=== PATIENT | female | born 1985 | race Caucasian/White ===

== ENCOUNTER 2017-08-17 09:50 | Emergency (ER) | payer BC, OTHER ==
[2017-08-17] MEDS ORDERED: TETRACAINE HCL 0.5% 2ML OPTH ONE (13:01)
[2017-08-17] MEDS ORDERED: FLUORESCEIN SODIUM 0.6 MG/WRAP ONE (13:01)
[2017-08-17] MEDS ORDERED: TOBRAMYCIN 0.3% 5ML OPTH DROPS OPTH ONE (13:15)
--- NOTE | 2017-08-17 13:24 | EDPHYS ---
Physician Documentation [facility] Name: Suni Vargas Age: 31 yrs Sex: Female : 1985 Arrival Date: 08/17/2017 Time: 09:53 Bed 23 Private MD: John Paul Bermudez P ED Physician Mika Jones HPI: 08/17 14:00 This 31 yrs old Female presents to ER via Ambulatory with complaints of snw Foreign Body In Eye. 14:00 The patient is experiencing pain, redness, tearing, to the right eye. Onset: The snw symptoms/episode began/occurred suddenly, yesterday, and became worse and became persistent. Duration: the symptoms are continuous. Associated signs and symptoms: Pertinent positives: runny nose. Patient wears soft contacts, removed prior to arrival. Severity of symptoms: At their worst the symptoms were moderate severe in the emergency department the symptoms are unchanged. The patient has not experienced similar symptoms in the past. The patient has not recently seen a physician. 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 - Social history:: Smoking status: Patient/guardian denies using tobacco. - Ebola Screening: : No symptoms or risks identified at this time. ROS: 13:59 Constitutional: Negative for fever, chills, and weight loss, ENT: Negative for injury, snw pain, and discharge, Neck: Negative for injury, pain, and swelling, Cardiovascular: Negative for chest pain, palpitations, and edema, Respiratory: Negative for shortness of breath, cough, wheezing, and pleuritic chest pain, Abdomen/GI: Negative for abdominal pain, nausea, vomiting, diarrhea, and constipation, Back: Negative for injury and pain, : Negative for injury, bleeding, discharge, and swelling, MS/Extremity: Negative for injury and deformity, Skin: Negative for injury, rash, and discoloration, Neuro: Negative for headache, weakness, numbness, tingling, and seizure. 13:59 Eyes: Positive for foreign body sensation, injury or acute deformity, redness, tearing, of the iris of right eye. Exam: 13:55 Constitutional: This is a well developed, well nourished patient who is awake, alert, snw and in no acute distress. Head/Face: Normocephalic, atraumatic. ENT: Nares patent. No nasal discharge, no septal abnormalities noted. Tympanic membranes are normal and external auditory canals are clear. Oropharynx with no redness, swelling, or masses, exudates, or evidence of obstruction, uvula midline. Mucous membranes moist. Neck: Trachea midline, no thyromegaly or masses palpated, and no cervical lymphadenopathy. Supple, full range of motion without nuchal rigidity, or vertebral point tenderness. No Meningismus. Chest/axilla: Normal chest wall appearance and motion. Nontender with no deformity. No lesions are appreciated. Cardiovascular: Regular rate and rhythm with a normal S1 and S2. No gallops, murmurs, or rubs. Normal PMI, no JVD. No pulse deficits. Respiratory: Lungs have equal breath sounds bilaterally, clear to auscultation and percussion. No rales, rhonchi or wheezes noted. No increased work of breathing, no retractions or nasal flaring. Abdomen/GI: Soft, non-tender, with normal bowel sounds. No distension or tympany. No guarding or rebound. No evidence of tenderness throughout. Back: No spinal tenderness. No costovertebral tenderness. Full range of motion. Skin: Warm, dry with normal turgor. Normal color with no rashes, no lesions, and no evidence of cellulitis. MS/ Extremity: Pulses equal, no cyanosis. Neurovascular intact. Full, normal range of motion. Neuro: Awake and alert, GCS 15, oriented to person, place, time, and situation. Cranial nerves II-XII grossly intact. Motor strength 5/5 in all extremities. Sensory grossly intact. Cerebellar exam normal. Normal gait. Psych: Awake, alert, with orientation to person, place and time. Behavior, mood, and affect are within normal limits. 13:55 Eyes: Periorbital structures: appear normal, Pupils: no acute changes, Extraocular movements: no acute changes, Conjunctiva: injected, in the right eye, tearing noted, Corneas: abrasion, foreign body, at 6 o'clock. Vital Signs: 09:57 BP 132 / 90; Pulse 65; Resp 18; Temp 98.5(TE); Pulse Ox 98% on R/A; Weight 88.45 kg; sv Height 5 ft. 5 in. (165.10 cm); Pain 10/10; 12:44 BP 133 / 86; Pulse 68; Resp 18; Pulse Ox 100% ; Pain 10/10; tt1 09:57 Body Mass Index 32.45 (88.45 kg, 165.10 cm) sv Procedures: 13:56 Eye Exam: tetracaine placed, fluorescein uptake at 6 o'clock position, needle used to snw try to remove pinpoint fb. MDM: 12:51 Patient medically screened. snw 08/17 12:55 Order name: Eye Tray; Complete Time: 13:15 snw 08/17 12:55 Order name: Visual Acuity; Complete Time: 13:15 snw 08/17 12:55 Order name: Eye Tray; Complete Time: 13:15 snw 08/17 12:55 Order name: Fluoresene Opth strip; Complete Time: 13:15 snw Administered Medications: 13:05 Drug: Tetracaine Drops 0.5 % 1 drops {Note: administration by Judith Orlando NP.} ss Route: Ophthalmic; Site: right eye; 13:15 Drug: ToBREx Drops (0.3 %) 2 drops Route: Ophthalmic; Site: right eye; ss 13:32 Drug: fentaNYL (PF) 50 mcg Route: IM; Site: left deltoid; ss 13:40 Drug: Zofran 4 mg Route: PO; ss Disposition: 08/17/17 13:24 Discharged to Home. Impression: Corneal foreign body, Corneal abrasion. - Condition is Stable. - Discharge Instructions: Corneal Abrasion, Eye Foreign Body. - Prescriptions for Diclofenac Sodium 75 mg Oral Tablet Sustained Release - take 1 tablet by ORAL route 2 times per day; 30 tablet. - Medication Reconciliation Form, Thank You Letter, Antibiotic Education, Prescription Opioid Use form. - Follow up: Dee Wellington MD; When: 1 - 2 days; Reason: Recheck today's complaints, Continuance of care, Re-evaluation by your physician. Follow up: Dee Wellington MD; When: Tomorrow; Reason: Recheck today's complaints, Continuance of care. Addendum: 08/21/2017 07:31 Co-signature as Attending Physician, Mika Jones MD. g s Signatures: Lalita Figueroa, RN RN Judith Gonzalez, WARP PREPARER-C WARP PREPARER-Csnw Gaby Olivera RN RN Mika Galvez MD MD Corrections: (The following items were deleted from the chart) 08/17 13:58 13:24 08/17/2017 13:24 Discharged to Home. Impression: Corneal foreign body; Corneal ss abrasion. Condition is Stable. Forms are Medication Reconciliation Form, Thank You Letter, Antibiotic Education, Prescription Opioid Use. Follow up: Dee Wellington; When: Tomorrow; Reason: Recheck today's complaints, Continuance of care. snw
--- NOTE | 2017-08-17 13:24 | ER ---
Nurse's Notes [facility] Name: Suni Vargas Age: 31 yrs Sex: Female : 1985 Arrival Date: 08/17/2017 Time: 09:53 Bed 23 Private MD: John Paul Bermudez P Diagnosis: Corneal foreign body;Corneal abrasion Presentation: 08/17 09:55 Presenting complaint: Patient states: right eye unknown foreign body since yesterday. sv Redness noted to eyes. Pt has been flushing out her right eye since yesterday. Transition of care: patient was not received from another setting of care. Onset of symptoms was August 16, 2017. Risk Assessment: Do you want to hurt yourself or someone else? Patient reports no desire to harm self or others. Care prior to arrival: None. 09:55 Method Of Arrival: Ambulatory sv 09:55 Acuity: RAVIN 4 sv 11:15 Initial Sepsis Screen: Does the patient meet any 2 criteria? No. Patient's initial ss sepsis screen is negative. Does the patient have a suspected source of infection? No. Patient's initial sepsis screen is negative. 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 - Social history:: Smoking status: Patient/guardian denies using tobacco. - Ebola Screening: : No symptoms or risks identified at this time. Screenin:45 Abuse screen: Denies threats or abuse. Denies injuries from another. Nutritional ss screening: No deficits noted. Tuberculosis screening: Never had TB. Fall Risk None identified. Assessment: 12:45 General: Appears uncomfortable, Behavior is calm, cooperative. Pain: Complains of pain ss in iris of right eye Pain currently is 8 out of 10 on a pain scale. Pain began 1 day ago. Is continuous. Neuro: Level of Consciousness is awake, alert. Cardiovascular: Capillary refill < 3 seconds is brisk in bilateral fingers Patient's skin is warm and dry. Respiratory: Airway is patent Respiratory effort is even, unlabored. GI: Patient currently denies diarrhea, nausea, vomiting. EENT: Sclera/Cornea are reddened in outer aspect of conjuctiva of right eye and inner aspect of conjuctiva of right eye. Derm: Skin is intact, is healthy with good turgor, Skin is pink, warm \T\ dry. normal. Musculoskeletal: Circulation, motion, and sensation intact. Range of motion: intact in all extremities. Vital Signs: 09:57 BP 132 / 90; Pulse 65; Resp 18; Temp 98.5(TE); Pulse Ox 98% on R/A; Weight 88.45 kg; sv Height 5 ft. 5 in. (165.10 cm); Pain 10/10; 12:44 BP 133 / 86; Pulse 68; Resp 18; Pulse Ox 100% ; Pain 10/10; tt1 09:57 Body Mass Index 32.45 (88.45 kg, 165.10 cm) sv ED Course: 09:53 Patient arrived in ED. sb2 09:54 John Paul Bermudez MD is Private Physician. sb2 09:56 Triage completed. sv 09:57 Arm band placed on left wrist. sv 09:59 Patient placed in waiting room, Patient notified of wait time. sv 10:53 Judith Orlando FNP-C is [facility]. snw 10:53 Mika Jones MD is Attending Physician. snw 12:45 Patient has correct armband on for positive identification. Bed in low position. Call ss light in reach. 12:55 Gaby Olivera, ALEX is Primary Nurse. ss 13:19 Dee Wellington MD is Referral Physician. snw 13:19 Referral Physician role handed off by Dee Wellington MD snw 13:19 Dee Wellington MD is Referral Physician. snw 13:56 No provider procedures requiring assistance completed. Patient did not have IV access ss during this emergency room visit. Administered Medications: 13:05 Drug: Tetracaine Drops 0.5 % 1 drops {Note: administration by Judith Orlando NP.} ss Route: Ophthalmic; Site: right eye; 13:15 Drug: ToBREx Drops (0.3 %) 2 drops Route: Ophthalmic; Site: right eye; ss 13:32 Drug: fentaNYL (PF) 50 mcg Route: IM; Site: left deltoid; ss 13:40 Drug: Zofran 4 mg Route: PO; Outcome: 13:24 Discharge ordered by MD. schreiber 13:56 Discharged to home ambulatory, with significant other. 13:56 Condition: good 13:56 Discharge instructions given to patient, significant other, Instructed on discharge instructions, follow up and referral plans. medication usage, Demonstrated understanding of instructions, follow-up care, medications, Prescriptions given X 2. 13:58 Patient left the ED. Signatures: Lalita Figueroa RN RN Judith Orlando, GREEN MEAT PACKER-C GREEN MEAT PACKER-Gaby Mike RN RN Norma Reyna tt1 Chelsea Snell sb2 Corrections: (The following items were deleted from the chart) 09:59 09:55 Presenting complaint: Patient states: right eye unknown foreign body since yesterday. Redness noted to eyes. sv 10:00 09:57 Pulse 65bpm; Resp 18bpm; Pulse Ox 98% RA; Temp 98.5F Temporal; 88.45 kg; Height 5 sv ft. 5 in.; BMI: 32.4; Pain 10/10; sv 19:14 19:14 General: Appears [facility]
[2017-08-17] MEDS ORDERED: FENTANYL CITR 100 MCG/2 ML ONE (13:35)
[2017-08-17] MEDS ORDERED: ONDANSETRON 4 MG (ODT) TAB ONE (13:36)
[2017-08-17 14:02] VITALS: TEMP 98.5
[2017-08-17 14:03] VITALS: BP 133/86; O2SAT 100
== END 2017-08-17 13:58 | disposition home or self-care (01) ==
LOC: ER 09:50
DX: T15.01XA Foreign body in cornea, right eye, initial encounter (principal); Z88.5 Allergy status to narcotic agent
CPT/HCPCS: 96372; 99283; J3010

== ENCOUNTER 2019-03-22 06:30 | Inpatient (IN) | payer OTHER ==
[~2019-03-22 06:30] MED LIST: BUTORPHANOL 1 MG/ML INJ IV PRN; CARBOPROST TROME 250 MCG/ML IM PRN; METHYLERGONOVINE 0.2MG/ML AMP IM PRN; PROMETHAZINE INJ 25 MG/ML AMP IV PRN; Ringers Lactate 1,000 ML IV PRN
[2019-03-22] MEDS ORDERED: Ringers Lactate 1,000 ML IV SCH (07:00)
[2019-03-22] MEDS ORDERED: OXYTOCIN/LR 20 UNIT/1,000 ML BAG IV SCH ×2 (07:00→16:00)
[2019-03-22 07:24] LABS: Urine Appearance CLEAR; Urine Bilirubin NEGATIVE (NEG); Urine Blood NEGATIVE (NEG); Urine Color YELLOW; Urine Glucose NEGATIVE (NEG); Urine Protein NEGATIVE (NEG)
[2019-03-22 07:28] LABS: Absolute Lymphocytes (CBC) 1.7 K/uL (0.7-4.9); Basophils % 0.2 % (0-1.3); Hematocrit 33.2 % (36.0-45.0); Lymphocytes % 19.8 % (15.3-44.8); MPV 9.5 fL (7.6-11.3); RBC Red Blood Cell Count 3.86 M/uL (3.86-4.86)
[2019-03-22 07:33] LABS: Urine Microscopic Reflex NO UMIC
[2019-03-22 08:19] VITALS: BMI 36.6
[2019-03-22] MEDS ORDERED: FENTANYL/BUPIVACAINE/NS/PF 200 MCG/100 ML BAG EP PRN (08:59)
[2019-03-22] MEDS ORDERED: BUPIVACAINE 0.25% PF 30 ML VIAL IV ONE (09:00)
[2019-03-22] MEDS ORDERED: FENTANYL CITR 100 MCG/2 ML IV ONE (09:01)
[2019-03-22] MEDS ORDERED: LIDOCAINE 1% 20 ML MDV ONE (12:57)
[2019-03-22] MEDS ORDERED: METHYLERGONOVINE 0.2MG/ML AMP IM PRN (15:40)
[2019-03-22] MEDS ORDERED: METHYLERGONOVINE 0.2 MG TAB PO PRN (15:40)
[2019-03-22] MEDS ORDERED: CARBOPROST TROME 250 MCG/ML IM PRN (15:40)
[2019-03-22] MEDS ORDERED: ONDANSETRON 4 MG (ODT) TAB PO PRN (15:40)
--- NOTE | 2019-03-22 15:44 | P.BOP ---
Preoperative diagnosis: 39+ week Postoperative diagnosis: same, delivered Primary procedure: SCVD viable macrosomic male infant Secondary procedure: right midline episiotomy Estimated blood loss: 250 Anesthesia: epidural Complications: Other (CAN X1) Transferred to: Other (272) Condition: Good
[2019-03-22] MEDS: IBUPROFEN 200 MG TAB PO PRN (18:52)
[2019-03-22] MEDS: Oxycodone HCl/Acetaminophen 1 TAB TAB PO PRN (22:14)
[2019-03-23 01:06] LABS: RPR (Rapid Plasma Reagin) NON-REACT (NON-REACT)
--- NOTE | 2019-03-23 01:31 | DN ---
Surgeon: John Paul Bermudez MD Ms. Vargas is a 33-year-old female 4, para 2-0-1-2, who is admitted for induction of labor at approximately 39 weeks gestation. Pitocin augmentation of labor was begun. Initially it was difficult to rupture membranes, once this was accomplished, labor progressed much more rapidly. She had a first stage of labor of 6 hours and 55 minutes, second stage of labor of 27 minutes. She delivered a 9 pound 12 ounce male infant, 8 and 9, vertex OA presentation with cord around the neck x1 over a right midline episiotomy. Infant was delivered after delayed cord clamping, cord was clamped, cut, and the infant placed on mother's upper abdomen. Cord blood was obtained. Placenta sp ontaneously expelled and appeared to be intact. Intrauterine examination revealed no retained placen dennys fragments. She had placement of epidural catheter with good effect. Right midline episiotomy wa s repaired in the usual fashion with 3-0 Vicryl suture. Qualitative blood loss was 274 mL. TESSY/JEREMY Voice ID: [id number] Report ID: [id number]
[2019-03-23] MEDS: Oxycodone HCl/Acetaminophen 1 TAB TAB PO PRN ×2 (05:16→09:19)
[2019-03-23 16:07] VITALS: BP 127/70; TEMP 97.9
[2019-03-23] MEDS: IBUPROFEN 200 MG TAB PO PRN (16:09)
--- NOTE | 2019-03-24 03:43 | DS ---
Date of Discharge: 03/23/2019 Final Hospital Discharge Diagnoses: 1.39 plus week , delivered. 2. macrosomia. Complications: Mild shoulder dystocia. Procedures: Artificial rupture membranes, Pitocin induction of labor, placement of epidural catheter , right midline episiotomy with repair, spontaneous controlled vaginal delivery of 9-pounds 12-ounce male infant. Hospital Course: Patient is a 33-year-old female, 4, para 3-0-0-3, admitte d for elective induction of labor. She had an uncomplicated delivery other than mild shoulder dystoc ia of a 9-pound 12-ounce male , 8 and 9. She was dismissed on the first day a mbulatory on a select diet with routine post vaginal delivery activity restrictions, to be seen back in my office in 1 week. She had an admission hemoglobin and hematocrit of 11.3 and 33.2, dismissal h ematocrit of 32.1. She is Rh positive blood type, rubella immune. She was dismissed with prescripti on for tramadol 50 mg, #15 one p.o. q.6 hours p.r.n. pain, to continue taking her iron and v itamins, to be seen back in my office in 1 week. TESSY/JEREMY Voice ID: [id number] Report ID: [id number]
[2019-03-25 03:27] LABS: HBsAG Nonreactive (Nonreactive)
== END 2019-03-23 17:50 | disposition home or self-care (01) | DRG 807 ==
LOC: 2ND-WC 06:30
PROVIDERS: ADMIT Specialist; ATTEND Specialist
PROC: 10907ZC Drainage of Amniotic Fluid, Therapeutic from Products of Conception, Via Natural or Artificial Opening (ICD-10-PCS; principal; 2019-03-22)
PROC: 10E0XZZ Delivery of Products of Conception, External Approach (ICD-10-PCS; 2019-03-22)
PROC: 0W8NXZZ Division of Female Perineum, External Approach (ICD-10-PCS; 2019-03-22)
DX: O66.0 Obstructed labor due to shoulder dystocia (principal); Z37.0 Single live birth; O36.63X0 Maternal care for excessive fetal growth, third trimester, not applicable or unspecified; O69.81X0 Labor and delivery complicated by cord around neck, without compression, not applicable or unspecified; Z3A.39 39 weeks gestation of pregnancy
CPT/HCPCS: 36415; 81003; 85014; 85025; 86592; 86850; 86900; 86901; 87340; J2210; J2590; J3010; J7120